=== PATIENT | female | born 1935 | race Caucasian/White ===

== ENCOUNTER → 2016-06-29 | Outpatient (CLI) | payer MEDICARE, BC ==
[~2016-06-29] VITALS: Ht 157.5 cm; Wt 63.6 kg
[~2016-06-29] MED LIST: ACET-2321 PO; ALEN70TA15 PO; ASCO-297 PO; ASPI-1115 PO; ASPI-557 PO; CALC600T2 PO; DENOSUMAB 60 MG/ML INJECTION SQ ONE; ENAL1TAB11 PO; LABE100T19 PO; POLY17PO6 PO; POTA20TA68 PO; TRAM50TA53 PO
[2016-06-29 14:21] VITALS: Ht 157.5 cm; Wt 63.6 kg
[2016-06-29 14:30] VITALS: BP 128/72; PULSE 68; RESP 16; TEMP 98.4; O2SAT 100
== END ==
LOC: INF.THER 13:37
PROVIDERS: ATTEND Family Medicine
DX: M81.0 Age-related osteoporosis without current pathological fracture (principal)
CPT/HCPCS: 96372; J0897